=== PATIENT | male | born 1970 | race Caucasian/White ===

== ENCOUNTER 2022-07-01 19:04 | Emergency (ER) | payer BC, SELFPAY ==
--- NOTE | 2022-07-01 19:08 | ED.GENADULT ---
HPI - General Adult General Chief complaint: Upper Respiratory Infection Stated complaint: Congestion,Cough Time Seen by Provider: 07/01/22 19:08 Source: patient Mode of arrival: ambulatory Limitations: no limitations History of Present Illness HPI narrative: 51-year-old male patient presents to the [facility] with complaints cold symptoms for the past 5-6 days. Denies fevers, body aches or chills. Patient states he has had a cough and has been coughing up green sputum. Patient states he feels very congested in the nose. Patient states he does take rated 9 daily for his allergies. Patient does have history of asthma but states he has not been using his inhaler. Denies chest pain or shortness of breath. Related Data Home Medications Medication Instructions Recorded Confirmed albuterol sulfate 90 mcg/actuation 1 puff inhalation Q4H PRN 03/10/19 07/01/22 aerosol inhaler (ProAir HFA) Shortness Of Breath loratadine 10 mg tablet 10 mg PO DAILY 03/10/19 07/01/22 Allergies Allergy/AdvReac Type Severity Reaction Status Date / Time No Known Allergies Allergy Verified 07/01/22 19:27 Review of Systems Review of Systems: CONSTITUTIONAL: Denies fever, chills, or sweats. EYES: Denies visual changes, redness, or discharge. ENT: positive rhinorrhea, congestion,denies sore throat, or otalgia. CARDIOVASCULAR: Denies chest pain, palpitations, or edema. RESPIRATORY:positive cough denies dyspnea. GASTROINTESTINAL: Denies abdominal pain, nausea, vomiting, or diarrhea. GENITOURINARY: Denies dysuria or hematuria. SKIN: Denies rash or itching. MUSCULOSKELETAL: Denies back pain, joint pain, or myalgia. NEUROLOGIC: positive headache, numbness, or weakness. PSYCHIATRIC: Denies anxiety or depression. [facility] Past Medical History Medical History ADHD Allergic rhinitis Atrial flutter Bipolar 1 disorder Cyclothymia GERD (gastroesophageal reflux disease) HLD (hyperlipidemia) Mild intermittent asthma in adult without complication MIGUEL (obstructive sleep apnea) Rhinosinusitis Surgical History Surgical History H/O inguinal hernia repair History of appendectomy Social History Social History Social History: Smoking status: Never smoker Second hand tobacco smoke exposure: No Alcohol intake: current Drinks per week: 21 Substance use: never Substance use type: does not use Living arrangements: with family Occupation/Education: occupation Gender identity (if verbalized by the patient): Male Sexual Orientation (if Verbalized by the Patient): Straight or Heterosexual Comments at the time of my signature I agree with nursing past medical history, surgical, social, and family history. There is no relevant family history pertinent to the presenting complaint. Exam Narrative: GENERAL: Well-appearing, well-nourished, and in no acute distress. HEAD: Normocephalic, atraumatic. EYES: PERRLA and EOMI. ENT: Nares with erythema and edema noted bilaterally, no rhinorrhea or epistaxis. Mucous membranes moist. posterior pharynx no erythema, tonsillar enlargement, exudates or lesions present. Bilateral TMs are clear no erythema or bodies the canal. NECK: Supple. No lymphadenopathy CHEST: Clear to auscultation. No respiratory distress. Patient will talk in clear complete sentences. HEART: Regular rate and rhythm. No murmur heard. Normal peripheral pulses. ABDOMEN: Soft, nontender, nondistended, normal active bowel sounds. EXTREMITIES: Normal range of motion. No edema. SKIN: Warm, dry, no rash. NEURO: No focal deficits. Alert and oriented x3. Course Course Level of Care: Express Care Visit Vital Signs Vital signs: Vital Signs Temperature 36.7 C 07/01/22 19:14 Pulse Rate 97 07/01/22 19:14 Respiratory Rate 24 H 07/01/22 19:14 Blood Pressure 1
[2022-07-01 19:14] VITALS: BP 138/94; PULSE 97; RESP 24; TEMP 36.7; O2SAT 98
== END 2022-07-01 19:35 | disposition home or self-care (01) ==
PROVIDERS: Emergency Provider Nurse Practitioner Family; PCP Family Medicine
DX: J01.90 Acute sinusitis, unspecified (principal); J45.901 Unspecified asthma with (acute) exacerbation; K21.9 Gastro-esophageal reflux disease without esophagitis; E78.5 Hyperlipidemia, unspecified; F90.9 Attention-deficit hyperactivity disorder, unspecified type
CPT/HCPCS: 99213; G0463

== ENCOUNTER 2024-07-07 01:46 | Day surgery (SDC) | payer BC, SELFPAY ==
[2024-06-26 13:01] VITALS: BMI 34.7
--- OUTSIDE RECORDS SUMMARY | 2024-07-07 01:49 | XMS_ITS | Clinical Summary ---
Author Organization [facility] Address [address] [place] [address] Care Team Providers Care Compensation Consultant Name Role Phone Ruben Gong MD Primary Care Provider [phone] Source Comments [facility],non-research medical center Affiliates and Associated Physician Practices is amultiple site organization consisting of ambulatory clinics and hospital sitesin [place], [place], [place] and [place]. This disclosure is being madepursuant to the Care Everywhere program and may not contain all information available regarding this patient. Last updated 18.[facility] Allergies No known active allergies Medications * Be aware that medications may not be up to date on this document. Alwaysverify current medications with the patient. Medication Sig Dispensed Refills Start Date End Date Status azelastine (ASTELIN) 0.1 % nasal spray [place] 2 sprays into the nose once daily 05/12/2016 Active celecoxib (CELEBREX) 200 MG capsule Take 200 mg by mouth 09/04/2016 Active citalopram (CELEXA) 40 MG tablet Take 40 mg by mouth 2 times daily 0 01/07/2017 Active diphenhydrAMINE (BENADRYL) 25 MG tablet Take 50 mg by mouth once daily Active Loratadine 10 MG Take 20 mg by mouth once daily Active methylphenidate CR (CONCERTA) 36 MG tablet Take 72 mg by mouth once daily 0 01/22/2017 Active omeprazole EC (PRILOSEC OTC) 20 MG tablet Take 20 mg by mouth once daily Active influenza quadrivalent vac (AFLURIA QUAD) 0.5 ML injection 02/08/2018 Active aspirin (ASPIRIN) 81 MG tablet Take 1 tablet by mouth once daily 100 tablet 4 03/22/2018 Active Active Problems Problem Noted Date Diagnosed Date S/P ablation of atrial flutter 03/17/2017 Hx of amiodarone therapy 03/17/2017 Typical atrial flutter 01/28/2017 On amiodarone therapy 01/28/2017 Chronic anticoagulation 01/28/2017 Social History Tobacco Use Types Packs/Day Years Used Date Smoking Tobacco: Never Smokeless Tobacco: Never Sex and Gender Information Value Date Recorded Sex Assigned at Not on file Gender Identity Not on file Sexual Orientation Not on file Last Filed Vital Signs Vital Sign Reading Time Taken Comments Blood Pressure 138/90 01/18/2019 10:21 AM CDT Pulse 89 01/18/2019 10:11 AM CDT Temperature 36.8 C (98.3 F) 01/18/2019 10:11 AM CDT Respiratory Rate 16 01/18/2019 10:11 AM CDT Oxygen Saturation 98% 01/18/2019 10:11 AM CDT Inhaled Oxygen Concentration - - Weight 117.9 kg (260 lb) 01/18/2019 10:11 AM CDT Height 190.5 cm (6' 3 ) 01/18/2019 10:11 AM CDT Body Mass Index 32.5 01/18/2019 10:11 AM CDT Plan of Treatment Health Maintenance Due Date Last Done Comments COLOGUARD (AGES 45-75) - COL ON CA SCREENING 1972 COLON MONITORING 1972 COLONOSCOPY - COLON CA SCREENING 1972 CT COLONOGRAPHY - COLON CA SCREENING 1972 Colorectal Cancer Screening 1972 FIT - COLON CA SCREENING 1972 FLEX SIG - COLON CA SCREENING 1972 LIPID TESTING 1972 HIV SCREENING 08/10/1987 HEPATITIS C SCREENING 08/05/1990 DTAP/TDAP/TD VACCINES (1 - Tdap) 08/10/1991 HEPATITIS B VACCINE (1 of 3 - 19+ 3-dose series) 08/10/1991 SCREENING FOR DIABETES 03/22/2018 PNEUMOCOCCAL VACCINE 50+ (1 of 1 - PCV) 2022 ZOSTER VACCINE (1 of 2) 2022 COVID-19 VACCINE ( - 2023-2 5 season) 2023 INFLUENZA VACCINE (#1) 2023 7, 12/21/2015 DEPRESSION SCREENING 04/16/2024 HIB VACCINE Aged Out No longer eligi ble based on patient's age to complete this topic HPV VACCINE Aged Out No longer eligi ble based on patient's age to complete this topic MENINGOCOCCAL (Group B) VACCINE SHARED DECISION-MAKING Aged Out No longer eligible based on patient's age to complete this topic MENINGOCOCCAL GROUPS A/C/Y/W VACCINE Aged Out No longer eligible b ased on patient's age to complete this topic PNEUMOCOCCAL VACCINE Aged Out No long er eligible based on patient's age to complete this topic Advance Directives * Full Code (Latest Code Status on File) Date Activated Date Inactivated Comments 02/08/2017 12:43 PM 02/08/2017 5:49 PM Care Teams Compensation Consultant Relationship Specialty Start Date End Date Ruben Gong MD [address] [place] [address] PCP - General Family Medicine 03/22/18
--- OUTSIDE RECORDS SUMMARY | 2024-07-07 01:49 | XMS_ITS | Clinical Summary ---
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 Gender Identity Not on file Sexual Orientation Not on file Plan of Treatment Health Maintenance Due Date Last Done Comments Colorectal Cancer Screening Colonoscopy (10 Years) 1972 Annual Physical 08/10/1975 Hepatitis C 1990 DTaP, Tdap and Td Vaccines (1 - Tdap) 08/10/1991 Hepatitis B Vaccines (1 of 3 - 19+ 3-dose series) 08/10/1991 Zoster Vaccines (1 of 2) 2022 COVID-19 Vaccine ( season) 2023 04/18/2021, 07/24/2020, 06/29/2020 Influenza Adult (#1) 2024 04/18/2021, 02/06/2020, 01/10/2017, Additional history exists Meningococcal B Vaccine Aged Out No l onger eligible based on patient's age to complete this topic Meningococcal Vaccine Aged Out No nolan rema eligible based on patient's age to complete this topic Pneumococcal Vaccine: Pediatrics (0 to 5 Years) and At-Risk Patients (6 to 64 Years) Aged Out No longer eligible based on patient's age to complete this topic RSV Immunizations Under 20 Months Aged Out No longer eligible based on patient's age to complete this topic Insurance [facility] Care Teams Feature Writer Relationship Specialty Start Date End Date Ruben Gong MD [address] [place] [address] PCP - General FAMILY PRACTICE 05/28/23
--- OUTSIDE RECORDS SUMMARY | 2024-07-07 01:49 | XMS_ITS | Clinical Summary ---
Author Organization [facility] Address [address], [facility] [address] [place] [address] Phone Care Team Providers Care Position Classifier Name Role Phone Unavailable Primary Care Provider Unavailabl e Allergies No known active allergies Medications Loratadine (CLARITIN) 10 MG Capsule Take 20 mg by mouth every morning. Active Omeprazole Magnesium (PRILOSEC OTC) 20 MG Tablet Delayed Response Take 20 mg by mouth daily. Active albuterol (PROVENTIL HFA, VENTOLIN HFA) 108 (90 Base) MCG/ACT Aerosol Solution take 2 Puffs by inhalation every 4 hours as needed for Wheezing. 8.5 g 6 8 Active Methylphenidate HCl 36 MG Tablet Controlled ReleaseIndication s:Attention Deficit Hyperactivity Disorder Take 2 Tabs by mouth every morning. 60 Tab 8 Active celecoxib (CELEBREX) 200 MG Capsule TAKE 1 CAPSULE DAILY 90 Cap 1 8 Active azelastine (ASTELIN) 0.1 % Solution 2 Sprays by Nasal route 2 times daily. Use in each nostril as directed 1 Bottle 3 8 Active citalopram (CELEXA) 40 MG Tablet Take 1 Tab by mouth daily. 90 Tab 8 Active naproxen (NAPROSYN) 500 MG Tablet TAKE 1 TABLET TWICE A DAY WITH MEALS 60 Tab 9 Active Active Problems Problem Noted Date Diagnosed Date Cyclothymia 05/25/2017 Gastroesophageal reflux disease without esophagi tis 05/25/2017 Atrial flutter with rapid ventricular response 1 ADHD 01/09/2017 Mild intermittent asthma without complication Obstructive sleep apnea syndrome 12/21/2015 Depression 12/21/2015 Primary osteoarthritis involving multiple joints 12/21/2015 Immunizations Immunization Administration Dates Next Due Influenza Vaccine, Quadrivalent, PF 01/10/2017 PUR FLU 3+ YRS PRES FREE QUAD IM 12/21/2015 Family History Medical History Relation Name Comments Hypertension Mother Diabetes Sister Relation Name Status Comments Father Alive Mother Alive Sister Alive Social History Tobacco Use Types Packs/Day Years Used Date Smoking Tobacco: Never Smokeless Tobacco: Never Tobacco Cessation:Counseling Given: Yes Alcohol Use Standard Drinks/Week Comments No 0 (1 standard drink = 0.6 oz pur e alcohol) Sex and Gender Information Value Date Recorded Sex Assigned at Not on file Legal Sex Male 2:46 PM CDT Gender Identity Not on file Sexual Orientation Not on file Last Filed Vital Signs Vital Sign Reading Time Taken Comments Blood Pressure 118/80 05/25/2017 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 Pulse 84 05/25/2017 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 Temperature 36.9 C (98.4 F) 05/25/2017 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 Respiratory Rate 18 05/25/2017 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 Oxygen Saturation 98% 05/25/2017 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 Inhaled Oxygen Concentration - - Weight 121.6 kg (268 lb) 05/25/2017 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 Height 190.5 cm (6' 3 ) 05/25/2017 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 Body Mass Index 33.5 05/25/2017 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 Plan of Treatment Health Maintenance Due Date Last Done Comments Hepatitis C Virus (HCV) Screening 1972 TdaP Immunization 1972 Hepatitis B Immunization (1 of 3 - 19+ 3-dose series) 08/10/1991 Pneumococcal Immunization (5 0+ years) (1 of 2 - PCV) 08/10/1991 Colonoscopy 2017 Colorectal Cancer Screening 2017 Cologuard 2022 Immunochemical Fecal Occult Blood 2022 Zoster Immunization (1 of 2) 2022 Influenza Immunization (#1) 12/16/202312/16, 12/21/2015 SARS-COV-2 Immunization (2023- season) 2023 Respiratory Syncytial Virus (RSV) Immunization (Adult) (1 - 1-dose 75+ series) 08/10/2047 Meningococcal Immunization (ACWY) Aged Out No longer eligible b ased on patient's age to complete this topic Rotavirus Immunization Aged Out No lo nger eligible based on patient's age to complete this topic Insurance [facility] Advance Directives * Full Code (Latest Code Status on File) Date Activated Date Inactivated Comments 01/15/2017 3:27 PM 01/17/2017 8:10 PM CPR-Full Vladimir atment: FULL ARREST: Attempt Resuscitation/CPR wit intubation and mechanical ventilation. PRE-ARREST: Use entire range of life support measures to stabilize the patient. * Full Code Date Activated Date Inactivated Comments 01/09/2017 12:23 PM 01/10/2017 9:21 PM CPR-Full Tr eatment: FULL ARREST: Attempt Resuscitation/CPR wit intubation and mechanical ventilation. PRE-ARREST: Use entire range of life support measures to stabilize the patient.
[2024-07-07 09:54] VITALS: BP 114/58; PULSE 75; RESP 18; TEMP 36.2; O2SAT 99
--- NOTE | 2024-07-07 09:58 | WPDANESEPPF ---
Anes - Initial Pre Proc Eval Procedure: Operation Date: 07/07/24 11:00 Proposed Procedures p Screening Colonoscopy - Fly Cruz MD Date/Time: 07/07/24 09:58 Surgeon: Fly Cruz MD Pre Op Diagnosis: Screening Patient Data Age: 53 Gender: M Height: 1.91 m Weight: 121.8 kg Last Vital Signs Temp 97.2 F L 07/07/24 09:54 Pulse 75 07/07/24 09:54 Resp 18 07/07/24 09:54 BP 114/58 L 07/07/24 09:54 Pulse Ox 99 07/07/24 09:54 O2 Del Method Room Air 07/07/24 09:54 Allergies Allergy/AdvReac Type Severity Reaction Status Date / Time No Known Allergies Allergy Verified 07/07/24 09:50 Home Medications ?Medication ?Instructions ?Recorded ?Confirmed ?Type omeprazole 20 mg capsule,delayed 20 mg PO DAILY #30 caps 08/15/21 07/07/24 Rx release albuterol sulfate 90 mcg/actuation 1 puff inhalation Q4H PRN 05/10/23 06/26/24 Rx aerosol inhaler (ProAir HFA) Shortness Of Breath #6.7 grams atorvastatin 20 mg tablet 20 mg PO QHS #90 tabs 03/17/24 07/07/24 Rx celecoxib 200 mg capsule (Celebrex) 200 mg PO DAILY #90 caps 04/18/24 07/07/24 Rx citalopram 40 mg tablet 40 mg PO DAILY #90 tabs 05/01/24 07/07/24 Rx methylphenidate HCl 36 mg 72 mg (2 x 36 mg) PO QAM #60 tabs 07/03/24 07/07/24 Rx tablet,extended release 24 hr Patient hx anesthesia problems: none Family hx anesthesia problems: none Results Review: All pre-operative results and documents have been reviewed as part of the pre-operative evaluation. [facility] Past Medical History Medical History Atrial flutter Bipolar 1 disorder HLD (hyperlipidemia) Rhinosinusitis Allergic rhinitis Mild intermittent asthma in adult without complication Cyclothymia GERD (gastroesophageal reflux disease) MIGUEL (obstructive sleep apnea) ADHD Surgical History Surgical History History of appendectomy H/O inguinal hernia repair Social History Social History Social History: Smoking status: Never smoker Second hand tobacco smoke exposure: No Alcohol intake: current Drinks per week: 21 Substance use: never Substance use type: does not use Living arrangements: with family Occupation/Education: occupation Gender identity (if verbalized by the patient): Male Sexual Orientation (if Verbalized by the Patient): Straight or Heterosexual Anes - Eval Final PreProcedure Day of Procedure 07/07/24 09:58 Patient weight: obese Lungs: normal air movement Airway: Mallampati scale class III Neurological: alert and oriented Last oral intake: >/= 8 hours ASA classification: III Emergent: no Anesthetic plan: proceed Anesthesia type and monitoring: general GIVS and standard monitoring Results Review: All pre-operative results and documents have been reviewed as part of the pre-operative evaluation. Hyperlipidemia, MIGUEL on CPAP, hx of a flutter, stable now, s/p ablation approx 2019. Informed Consent: The patient's anesthetic plan and its attendant risks and benefits were discussed with the patient/family/POA. Questions were solicited and answers provided to the satisfaction of the patient/family/POA.
[2024-07-07] MEDS: LACTATED RINGERS 1,000 ML 150 ML IV CONT (10:03)
--- NOTE | 2024-07-07 10:37 | PM.HPGS ---
History of Present Illness History of Present Illness Consent: Risks, benefits, and alternatives have been discussed and questions answered. Patient agrees to proceed with procedure. Chief complaint: Screening Narrative: Jm Merida is a 53 year old male here for screening colonoscopy Review of Systems Review of Systems: All systems reviewed & are unremarkable except as noted in HPI and below PMFSH Past Medical History Medical History (Updated 07/07/24 @ 10:39 by Fly Cruz MD) Colon cancer screening Atrial flutter Bipolar 1 disorder HLD (hyperlipidemia) Rhinosinusitis Allergic rhinitis Mild intermittent asthma in adult without complication Cyclothymia GERD (gastroesophageal reflux disease) MIGUEL (obstructive sleep apnea) ADHD Surgical History Surgical History History of appendectomy H/O inguinal hernia repair Social History Social History Social History: Smoking status: Never smoker Second hand tobacco smoke exposure: No Alcohol intake: current Drinks per week: 21 Substance use: never Substance use type: does not use Living arrangements: with family Occupation/Education: occupation Gender identity (if verbalized by the patient): Male Sexual Orientation (if Verbalized by the Patient): Straight or Heterosexual Meds Home Medications and Allergies Home Medications ?Medication ?Instructions ?Recorded ?Confirmed ?Type omeprazole 20 mg capsule,delayed 20 mg PO DAILY #30 caps 08/15/21 07/07/24 Rx release albuterol sulfate 90 mcg/actuation 1 puff inhalation Q4H PRN 05/10/23 06/26/24 Rx aerosol inhaler (ProAir HFA) Shortness Of Breath #6.7 grams atorvastatin 20 mg tablet 20 mg PO QHS #90 tabs 03/17/24 07/07/24 Rx celecoxib 200 mg capsule (Celebrex) 200 mg PO DAILY #90 caps 04/18/24 07/07/24 Rx citalopram 40 mg tablet 40 mg PO DAILY #90 tabs 05/01/24 07/07/24 Rx methylphenidate HCl 36 mg 72 mg (2 x 36 mg) PO QAM #60 tabs 07/03/24 07/07/24 Rx tablet,extended release 24 hr Allergies Allergy/AdvReac Type Severity Reaction Status Date / Time No Known Allergies Allergy Verified 07/07/24 09:50 Vital Signs Vital Signs - 24 hr 07/07/24 09:54 Temperature 97.2 F L Pulse Rate 75 Respiratory Rate 18 Blood Pressure 114/58 L Pulse Oximetry 99 Oxygen Delivery Room Air Exam Const: General: comfortable and no acute distress HENMT: Face/Nose/Sinus: Normal nares present Eyes: General: appearance normal, both eyes and all related structures Neck: Neck: no JVD Resp: Auscultation: clear to auscultation bilaterally Cardio: Rate: regular rate Rhythm: regular rhythm GI: Inspection: non-distended GI Palp: Yes Soft to palpation Skin: General skin exam: normal color Neuro: General: gait normal Speech: normal speech Extrem: General: normal to inspection Psych: Mental Status: mental status grossly normal Assessment and Plan Assessment and plan (1) Colon cancer screening: Code(s): Z12.11 - Encounter for screening for malignant neoplasm of colon Status: Acute Assessment and Plan: colonoscopy
[2024-07-07 10:52] VITALS: BP 109/87; PULSE 79; RESP 18; O2SAT 95
[2024-07-07 11:02] VITALS: BP 105/74; PULSE 75; RESP 18; O2SAT 96
[2024-07-07 11:12] VITALS: BP 114/73; PULSE 71; RESP 18; O2SAT 96
== END 2024-07-07 11:26 | disposition home or self-care (01) ==
PROVIDERS: PCP Family Medicine; Referring Provider Physician Assistant; Visit Provider Internal Medicine Gastroenterology
PROC: 0DJD8ZZ Inspection of Lower Intestinal Tract, Via Natural or Artificial Opening Endoscopic (ICD-10-PCS; CPT 45378; principal; 2024-07-07 11:00)
DX: Z12.11 Encounter for screening for malignant neoplasm of colon (principal); K63.5 Polyp of colon; E78.5 Hyperlipidemia, unspecified; J45.909 Unspecified asthma, uncomplicated; K21.9 Gastro-esophageal reflux disease without esophagitis; G47.33 Obstructive sleep apnea (adult) (pediatric); I48.92 Unspecified atrial flutter; F31.9 Bipolar disorder, unspecified; F34.0 Cyclothymic disorder; F90.9 Attention-deficit hyperactivity disorder, unspecified type; E66.9 Obesity, unspecified; Z68.33 Body mass index [BMI] 33.0-33.9, adult; Z79.51 Long term (current) use of inhaled steroids; Z79.1 Long term (current) use of non-steroidal anti-inflammatories (NSAID); Z98.890 Other specified postprocedural states
CPT/HCPCS: 45385; 88305; J2704; J7120